=== PATIENT | female | born 1970 | race Two or more races ===

== ENCOUNTER 2017-06-27 00:18 | Inpatient (IN) | payer MEDICAID ==
[~2017-06-27] VITALS: Ht 152.4 cm; Wt 82.2 kg
[2017-06-27 00:56] LABS: Basophils # (auto) 0.1 uL; Eosinophils # (auto) 0 uL; Monocytes # (auto) 0.5 uL
[2017-06-27 00:57] LABS: Basophils % (auto) 0.7 % (0.0-2.0); Eosinophils % (auto) 0.2 % (0.0-7.0); Hematocrit 38.2 % (36.0-46.0); Hemoglobin 12.5 g/dL (12.2-16.2); Lymphocytes # (auto) 1.4 uL; Lymphocytes % (auto) 18.4 % (10.0-50.0); Mean Corpuscular Hemoglobin 26.7 pg (28.0-32.0); Mean Corpuscular Hgb Conc. 32.8 g/dL (32.0-36.0); Mean Corpuscular Volume 81.5 fL (80.0-100.0); Mean Platelet Volume 8.2 fL (6.9-10.8); Monocytes % (auto) 5.9 % (0.0-12.0); Neutrophils # (auto) 5.7 uL; Neutrophils % (auto) 74.8 % (37.0-80.0); Nucleated Red Blood Cells % 0.1 %; Platelet Count (auto) 228 10^3/uL (140-450); Red Cell Distribution Width 16.4 % (11.8-14.3); Urine RBC None Seen /hpf (0 - 4); White Blood Cell 7.7 10^3/uL (4.4-10.8)
[2017-06-27 01:05] LABS: Urine Bilirubin Negative (Negative); Urine Blood Negative /uL (Negative); Urine Color Yellow (Yellow); Urine Glucose Normal (Normal); Urine Ketone Negative (Negative); Urine Nitrite Negative (Negative); Urine Squamous Epithelial Cell FEW /hpf (<5); Urine Urobilinogen Normal (Negative); Urine pH 8.5 (5.0-8.0)
[2017-06-27 01:14] LABS: Calcium 8.8 mg/dL (8.5-10.1); Potassium 3.5 mmol/L (3.5-5.1)
[2017-06-27 01:18] LABS: Albumin 3.9 g/dL (3.4-5.0); BUN/Creatinine Ratio 25.8
[2017-06-27 01:28] LABS: Bilirubin, Total 1.1 mg/dL (0.2-1.0); Total Protein 7.9 g/dL (6.4-8.2)
[2017-06-27] MEDS ORDERED: HYDROmorphone HCL 2 MG/ML VL IV ONE (04:15)
[2017-06-27] MEDS ORDERED: ONDANSETRON HCL 4 MG/2 ML VIAL IV ONE (04:15)
[2017-06-27] MEDS ORDERED: SODIUM CHLORIDE 0.9% 1,000 ML IV ONE ×2 (05:00→07:15)
[2017-06-27] MEDS ORDERED: cefTRIAXone 1GM/50ML D5W 50 ML IV ONE (07:30)
[2017-06-27] MEDS ORDERED: NITROGLYCERIN 0.4 MG SL TAB SL PRN (08:15)
[2017-06-27] MEDS ORDERED: LORazepam 2MG/ML-1ML VIAL IV PRN (08:15)
[2017-06-27] MEDS: SODIUM CHLORIDE 0.9% 1,000 ML IV SCH ×3 (09:13→18:40)
[2017-06-27] MEDS: cefTRIAXone 1GM/50ML D5W 50 ML IV SCH (09:13)
[2017-06-27] MEDS: PANTOPRAZOLE 40 MG/10 ML VIAL IV SCH (09:13)
[2017-06-27 11:43] VITALS: BP 149/83
[2017-06-27 15:08] VITALS: BP 139/76
[2017-06-27] MEDS: metroNIDAZOLE 500MG/100ML 100 ML IV SCH ×2 (15:59→22:11)
[2017-06-27] MEDS ORDERED: ESOM40CA39 PO (16:12)
[2017-06-27 17:37] VITALS: BP 127/89
[2017-06-27] MEDS: HYDROmorphone HCL 2 MG/ML VL IV PRN (18:46)
[2017-06-27 22:00] VITALS: BP 116/70
[2017-06-28] MEDS: HYDROmorphone HCL 2 MG/ML VL IV PRN ×3 (03:13→21:32)
[2017-06-28] MEDS: SODIUM CHLORIDE 0.9% 1,000 ML IV SCH ×4 (03:13→21:21)
[2017-06-28 05:02] VITALS: BP 129/66
[2017-06-28] MEDS: metroNIDAZOLE 500MG/100ML 100 ML IV SCH ×3 (05:20→21:20)
[2017-06-28] MEDS ORDERED: INFLUENZA QUAD 2017-2018 0.5 ML SYRG IM ONE (06:15)
[2017-06-28 08:06] LABS: Eosinophils # (auto) 0.2 uL; Hemoglobin 10.5 g/dL (12.2-16.2); Lymphocytes # (auto) 1.2 uL; Lymphocytes % (auto) 17.5 % (10.0-50.0)
[2017-06-28 08:08] LABS: Basophils # (auto) 0 uL; Basophils % (auto) 0.6 % (0.0-2.0); Eosinophils % (auto) 2.9 % (0.0-7.0); Hematocrit 31.9 % (36.0-46.0); Mean Corpuscular Hemoglobin 26.7 pg (28.0-32.0); Mean Corpuscular Hgb Conc. 32.8 g/dL (32.0-36.0); Mean Corpuscular Volume 81.5 fL (80.0-100.0); Mean Platelet Volume 8.3 fL (6.9-10.8); Monocytes # (auto) 0.6 uL; Platelet Count (auto) 172 10^3/uL (140-450); Red Cell Distribution Width 16.5 % (11.8-14.3)
[2017-06-28 08:27] LABS: Albumin 2.9 g/dL (3.4-5.0); Bilirubin, Total 0.8 mg/dL (0.2-1.0); Calcium 7.6 mg/dL (8.5-10.1); Potassium 3.3 mmol/L (3.5-5.1); Total Protein 6.1 g/dL (6.4-8.2)
[2017-06-28] MEDS: cefTRIAXone 1GM/50ML D5W 50 ML IV SCH (08:40)
[2017-06-28 09:01] VITALS: BP 136/81
[2017-06-28 13:20] VITALS: BP 144/84
[2017-06-28] MEDS: PROMETHAZINE HCL 25 MG/ML 1ML IV PRN (13:40)
[2017-06-28] MEDS: PANTOPRAZOLE 40 MG/10 ML VIAL IV SCH (13:58)
[2017-06-28 16:51] VITALS: BP 136/79
[2017-06-28 21:37] VITALS: BP 146/71
[2017-06-29 04:40] VITALS: BP 142/82
[2017-06-29] MEDS: metroNIDAZOLE 500MG/100ML 100 ML IV SCH ×3 (05:44→22:09)
[2017-06-29] MEDS: SODIUM CHLORIDE 0.9% 1,000 ML IV SCH ×3 (05:45→23:19)
[2017-06-29] MEDS: PROMETHAZINE HCL 25 MG/ML 1ML IV PRN ×2 (05:46→09:48)
[2017-06-29] MEDS: HYDROmorphone HCL 2 MG/ML VL IV PRN ×4 (05:46→22:09)
[2017-06-29 06:51] LABS: Basophils # (auto) 0 uL; Basophils % (auto) 0.5 % (0.0-2.0); Eosinophils # (auto) 0.1 uL; Lymphocytes # (auto) 1.5 uL; Mean Corpuscular Hemoglobin 26.8 pg (28.0-32.0); Monocytes # (auto) 0.7 uL; Neutrophils # (auto) 6.1 uL
[2017-06-29 06:54] LABS: Eosinophils % (auto) 1.2 % (0.0-7.0); Hematocrit 33.4 % (36.0-46.0); Lymphocytes % (auto) 17.2 % (10.0-50.0); Mean Corpuscular Hgb Conc. 32.9 g/dL (32.0-36.0); Mean Corpuscular Volume 81.3 fL (80.0-100.0); Mean Platelet Volume 8.6 fL (6.9-10.8); Monocytes % (auto) 8.8 % (0.0-12.0); Neutrophils % (auto) 72.3 % (37.0-80.0); Platelet Count (auto) 184 10^3/uL (140-450); Red Cell Distribution Width 16.4 % (11.8-14.3); White Blood Cell 8.4 10^3/uL (4.4-10.8)
[2017-06-29 07:05] LABS: Albumin 2.9 g/dL (3.4-5.0); BUN/Creatinine Ratio 12.2; Calcium 7.6 mg/dL (8.5-10.1)
[2017-06-29 07:08] LABS: Bilirubin, Total 0.8 mg/dL (0.2-1.0); Total Protein 6.8 g/dL (6.4-8.2)
[2017-06-29 07:29] LABS: Potassium 2.8 mmol/L (3.5-5.1)
[2017-06-29 07:45] VITALS: BP 127/74
[2017-06-29] MEDS: PANTOPRAZOLE 40 MG/10 ML VIAL IV SCH (09:47)
[2017-06-29] MEDS: cefTRIAXone 1GM/50ML D5W 50 ML IV SCH (09:47)
[2017-06-29] MEDS ORDERED: POTASSIUM CHLORIDE 40 MEQ, LIDOCAINE 1% (LOCAL ANESTH.) 4 ML in SODIUM CHL 0.9% 250 ML IV ONE (11:15)
[2017-06-29 12:17] VITALS: BP 149/91
[2017-06-29 16:00] VITALS: BP 147/90
[2017-06-29 21:58] VITALS: BP 133/105
[2017-06-30] MEDS: HYDROmorphone HCL 2 MG/ML VL IV PRN ×5 (02:02→20:21)
[2017-06-30] MEDS: SODIUM CHLORIDE 0.9% 1,000 ML IV SCH ×4 (03:57→22:43)
[2017-06-30 05:19] VITALS: BP 156/80
[2017-06-30] MEDS: metroNIDAZOLE 500MG/100ML 100 ML IV SCH ×3 (05:53→20:21)
[2017-06-30 08:00] VITALS: BP 142/94
[2017-06-30] MEDS: cefTRIAXone 1GM/50ML D5W 50 ML IV SCH (08:55)
[2017-06-30 08:56] LABS: BUN/Creatinine Ratio 8.7; Potassium 3.5 mmol/L (3.5-5.1)
[2017-06-30 09:00] VITALS: BP 142/94
[2017-06-30] MEDS: PANTOPRAZOLE 40 MG/10 ML VIAL IV SCH (10:07)
[2017-06-30 10:37] LABS: Hepatitis B Surface Antibody Negative
[2017-06-30] MEDS: PROMETHAZINE HCL 25 MG/ML 1ML IV PRN (12:24)
[2017-06-30 13:00] VITALS: BP 156/87
[2017-06-30 13:36] LABS: INR 1.08 (0.9-1.15); Partial Thromboplastin Time 27.1 sec (22.64-33.71); Prothrombin Time 11.8 sec (9.37-12.3)
[2017-06-30 17:00] VITALS: BP 145/84
[2017-06-30 22:00] VITALS: BP 132/85
[2017-07-01] VITALS (7 sets, daily range): BP systolic 119–157; BP diastolic 53–83
[2017-07-01] MEDS: HYDROmorphone HCL 2 MG/ML VL IV PRN ×5 (03:26→20:26)
[2017-07-01] MEDS: metroNIDAZOLE 500MG/100ML 100 ML IV SCH ×3 (06:53→21:36)
[2017-07-01] MEDS: SODIUM CHLORIDE 0.9% 1,000 ML IV SCH ×3 (06:54→20:27)
[2017-07-01] MEDS ORDERED: ceFAZolin 1GM/50ML 50 ML IV ONE (08:06)
[2017-07-01] MEDS ORDERED: POVIDONE IODINE 10 % TOPICAL OINT 30GM TOP ONE (08:44)
[2017-07-01] MEDS ORDERED: SUCCINYLCHOLINE CHLORIDE 20 MG/ML 10ML VIAL IV ONE (08:44)
[2017-07-01] MEDS ORDERED: fentaNYL CITRATE 100 MCG/2 ML VL ONE (08:45)
[2017-07-01] MEDS ORDERED: PROPOFOL 10 MG/ML 20 ML IV ONE (08:46)
[2017-07-01] MEDS ORDERED: NEOSTIGMINE 1 MG/ML INJ (10mg/10ML VIAL) ONE (08:46)
[2017-07-01] MEDS ORDERED: ONDANSETRON HCL 4 MG/2 ML VIAL ONE (08:46)
[2017-07-01] MEDS ORDERED: MEPERIDINE HCL (50 MG/ML) 1 ML VIAL ONE (08:46)
[2017-07-01] MEDS ORDERED: KETOROLAC TROMETH 60MG/2ML VIAL IM ONE (08:46)
[2017-07-01] MEDS ORDERED: MIDAZOLAM HCL 1MG/1ML-2 ML VIAL ONE (08:46)
[2017-07-01] MEDS ORDERED: GLYCOPYRROLATE 0.2 MG/ML 1ML VIAL ONE (08:46)
[2017-07-01] MEDS: cefTRIAXone 1GM/50ML D5W 50 ML IV SCH (08:48)
[2017-07-01] MEDS: PANTOPRAZOLE 40 MG/10 ML VIAL IV SCH (08:53)
[2017-07-01] MEDS ORDERED: KETOROLAC TROMETH 30 MG/ML 1ML VIAL IV ONE (09:00)
[2017-07-01] MEDS ORDERED: METOCLOPRAMIDE HCL 5MG/ml INJ 2ml VIAL IV ONE (09:00)
[2017-07-02] MEDS: SODIUM CHLORIDE 0.9% 1,000 ML IV SCH ×3 (02:09→14:43)
[2017-07-02] MEDS: HYDROmorphone HCL 2 MG/ML VL IV PRN ×2 (02:14→09:32)
[2017-07-02 04:55] VITALS: BP 122/79
[2017-07-02] MEDS: metroNIDAZOLE 500MG/100ML 100 ML IV SCH ×2 (06:08→14:00)
[2017-07-02 09:00] VITALS: BP 134/91
[2017-07-02] MEDS: cefTRIAXone 1GM/50ML D5W 50 ML IV SCH (09:31)
[2017-07-02] MEDS: PANTOPRAZOLE 40 MG/10 ML VIAL IV SCH (09:32)
[2017-07-02 13:00] VITALS: BP 147/92
== END 2017-07-02 16:45 | disposition home or self-care (01) | DRG 263 ==
LOC: ER 00:34 → TELE 00:35 → TELE-E-ADS 10:00 → TELE-CENTR 14:24
PROVIDERS: ADMIT Internal Medicine; ATTEND Internal Medicine
PROC: 0FT44ZZ Resection of Gallbladder, Percutaneous Endoscopic Approach (ICD-10-PCS; principal; 2017-07-01 08:57)
DX: K85.10 Biliary acute pancreatitis without necrosis or infection (principal); K80.10 Calculus of gallbladder with chronic cholecystitis without obstruction; K21.9 Gastro-esophageal reflux disease without esophagitis; K82.8 Other specified diseases of gallbladder; E66.9 Obesity, unspecified; Z80.8 Family history of malignant neoplasm of other organs or systems; Z68.35 Body mass index [BMI] 35.0-35.9, adult
CPT/HCPCS: 36415; 71010; 74176; 74181; 76705; 80048; 80053; 80061; 81001; 82150; 82247; 83605; 83690; 84702; 85025; 85610; 85730; 86704; 86706; 86708; 86803; 86850; 86900; 86901; 87040; 87340; 93005; 96361; 96374; 96375; C9113; J0330; J0690; J0696; J1885; J2001; J2250; J2405; J2704; J3490